=== PATIENT | female | born 1990 | race African-American/Black ===

== ENCOUNTER 2025-07-01 10:30 | Emergency (ER) | payer OTHER ==
[~2025-07-01] VITALS: Ht 170.2 cm; Wt 59.0 kg
[2025-07-01] MEDS ORDERED: LORAZEPAM 2 MG/1 ML VIAL ONE (10:41)
[2025-07-01] MEDS: LORAZEPAM 2 MG/1 ML VIAL IM ONE (10:49)
[2025-07-01] MEDS ORDERED: ALBUTEROL SULFATE 2.5 MG/3 ML NEBU ONE (11:56)
[2025-07-01] MEDS ORDERED: IPRATROPIUM BROMIDE 0.5 MG/2.5 ML NEBU ONE (11:57)
[2025-07-01] MEDS: IPRATROPIUM BROMIDE 0.5 MG/2.5 ML NEBU NEB ONE (12:03)
[2025-07-01] MEDS: ALBUTEROL SULFATE 2.5 MG/3 ML NEBU NEB ONE (12:03)
[2025-07-01 12:09] LABS: PLATELET COUNT (AUTO) 234 K/uL (179-408); RED BLOOD CELL COUNT(AUTO) 4.19 MIL/uL (3.63-4.92); RED CELL DISTRIBUTION WIDTH 14.0 % (12.3-17.7); WHITE BLOOD COUNT (AUTO) 4.8 K/uL (3.8-11.8)
[2025-07-01 12:24] LABS: ASPARTATE AMINOTRANSFERASE 16 U/L (15-37); CREATININE 1.0 mg/dL (0.6-1.3); SODIUM SERUM 142 mmol/L (136-145); TOTAL PROTEIN, SERUM 7.9 g/dL (6.4-8.2); UREA NITROGEN, BLOOD 13 mg/dL (7-18)
[2025-07-01 12:40] VITALS: BP 126/69
[2025-07-01] MEDS ORDERED: PRED50TA PO (14:16)
[2025-07-01] MEDS ORDERED: ALBU8.5H8 INH (14:16)
[2025-07-01 14:42] VITALS: BP 128/72; TEMP 97.8; O2SAT 99
== END 2025-07-01 14:43 | disposition home or self-care (01) ==
LOC: ER 10:30
DX: J45.909 Unspecified asthma, uncomplicated (principal); F41.9 Anxiety disorder, unspecified; Z79.52 Long term (current) use of systemic steroids; Z88.0 Allergy status to penicillin; Z91.048 Other nonmedicinal substance allergy status
CPT/HCPCS: 99285; 96374; 71045; 80076; 80048; 83880; 85025; 85379; 84484; 36415; 94640; 96372; J2919; J2060; A4606; A4663; J3590